=== PATIENT | female | born 1985 | race Caucasian/White ===

== ENCOUNTER 2023-09-18 07:27 | Outpatient (CLI) | payer OTHER | END 2023-09-18 07:28 | disposition home or self-care (01) | LOC: BICMAMMO 07:27 | PROVIDERS: ATTEND Family Medicine | DX: N63.21 Unspecified lump in the left breast, upper outer quadrant (principal) | CPT/HCPCS: G0279 ==

== ENCOUNTER 2024-04-05 10:59 | Emergency (ER) | payer OTHER ==
[2024-04-05] MEDS ORDERED: Acetaminophen 500 MG TAB ONE (12:15)
== END 2024-04-05 13:18 | disposition home or self-care (01) ==
LOC: ERS 10:59
DX: S01.111A Laceration without foreign body of right eyelid and periocular area, initial encounter (principal); W01.10XA Fall on same level from slipping, tripping and stumbling with subsequent striking against unspecified object, initial encounter; Y93.K1 Activity, walking an animal
CPT/HCPCS: 70450; 72125